=== PATIENT | male | born 1995 | race African-American/Black ===

== ENCOUNTER 2021-06-18 16:23 | Emergency (ER) | payer OTHER ==
[~2021-06-18] VITALS: Ht 170.2 cm; Wt 82.0 kg
[~2021-06-18 16:23] MED LIST: ALBUTEROL
[2021-06-18] MEDS ORDERED: CEFAZOLIN 1000MG PREMIX 50 ML IV ONE (16:45)
[2021-06-18] MEDS ORDERED: TETANUS, DIPHTHERIA, PERTUSSIS VAC/PF 0.5ML (>10YR OLD) IM ONE (16:45)
[2021-06-18] MEDS ORDERED: MORPHINE SULFATE 4 MG/ML CPJ (NOT FOR IM USE) IV ONE (16:45)
[2021-06-18] MEDS ORDERED: ONDANSETRON HCL 4MG/2ML INJ IV ONE (16:45)
[2021-06-18 17:18] LABS: BASOPHILS % 0.7 % (0.0-2.0); EOSINOPHILS % 2.3 % (0.0-5.0); HEMATOCRIT. 41.5 % (42.0-52.0); HEMOGLOBIN. 13.5 g/dL (14.0-18.0); LYMPHOCYTES % 24.5 % (20.0-50.0); MEAN CORPUSCULAR HEMOGLOBIN 26.2 pg (28.0-32.0); MEAN CORPUSCULAR VOLUME 80.6 fL (80.0-94.0); MEAN PLATELET VOLUME 8.2 fl (7.4-10.4); MONOCYTES % 7.7 % (2.0-8.0); NEUTROPHILS % 64.8 % (40.0-76.0); PLATELET 308 x1000/uL (130-400); RED BLOOD CELL COUNT 5.14 mill/uL (4.7-6.1); RED CELL DISTRIBUTION WIDTH 14.5 % (11.6-14.6)
[2021-06-18 17:34] LABS: CHLORIDE 104 mEq/L (98-107)
[2021-06-18] MEDS ORDERED: LIDOCAINE HCL/PF 1% 10 MG/ML 5ML VIAL INFIL ONE (18:30)
[2021-06-18] MEDS ORDERED: BACITRACIN ZINC OINT UDPKT TOP ONE (18:30)
[2021-06-18] MEDS ORDERED: LIDOCAINE HCL 1% 20ML VIAL (Pyxis) INJ INFIL NR (19:28)
[2021-06-18] MEDS ORDERED: IOHEXOL-350 100 ML BOTTLE ONE (20:23)
[2021-06-18] MEDS ORDERED: AMOX-424 MT (20:59)
[2021-06-18] MEDS ORDERED: IBUP-2029 MT (20:59)
[2021-06-18] MEDS ORDERED: OXYC-100 MT (20:59)
[2021-06-18 21:20] VITALS: BP 115/72
== END 2021-06-18 21:27 | disposition home or self-care (01) ==
LOC: ER 16:23
DX: S92.312B Displaced fracture of first metatarsal bone, left foot, initial encounter for open fracture (principal); I10 Essential (primary) hypertension; F12.10 Cannabis abuse, uncomplicated; F17.210 Nicotine dependence, cigarettes, uncomplicated; X93.XXXA Assault by handgun discharge, initial encounter; Y93.89 Activity, other specified; Y92.488 Other paved roadways as the place of occurrence of the external cause
CPT/HCPCS: 12004; 36415; 73630; 73706; 80048; 85025; 90471; 90715; 96365; 96375; 99285; J0690; J2270; J2405; J3490; Q9967; Z7610

== ENCOUNTER 2021-06-22 12:48 | Emergency (ER) | payer MEDICAID ==
[~2021-06-22] VITALS: Ht 170.2 cm; Wt 85.0 kg
[~2021-06-22 12:48] MED LIST changes: +AMOX-424 MT; +IBUP-2029 MT; +OXYC-100 MT
[2021-06-22] MEDS ORDERED: HYDR-4001 MT (13:11)
[2021-06-22 13:25] VITALS: BP 135/75
== END 2021-06-22 13:20 | disposition home or self-care (01) ==
LOC: ER 12:48
DX: Z48.00 Encounter for change or removal of nonsurgical wound dressing (principal); Z87.828 Personal history of other (healed) physical injury and trauma; F12.10 Cannabis abuse, uncomplicated; F17.210 Nicotine dependence, cigarettes, uncomplicated
CPT/HCPCS: 99283

== ENCOUNTER 2021-09-21 01:47 | Inpatient (IN) | payer MEDICAID, OTHER ==
[~2021-09-21] VITALS: Ht 172.7 cm; Wt 84.4 kg
[2021-09-21] VITALS (65 sets, daily range): BP systolic 95–170; BP diastolic 61–115
[~2021-09-21 01:47] MED LIST changes: +HYDR-4001 MT
[2021-09-21] MEDS ORDERED: ONDANSETRON HCL 4MG/2ML INJ IV STA (01:52)
[2021-09-21] MEDS ORDERED: PROPOFOL 10MG/ML 100ML 100 ML IV ONE ×2 (02:00→03:45)
[2021-09-21] MEDS ORDERED: ETOMIDATE 2MG/ML 10ML VIAL IV ONE ×3 (02:00→09:07)
[2021-09-21] MEDS ORDERED: SUCCINYLCHOLINE CHLORIDE 200MG/10ML IV ONE ×3 (02:00→09:07)
[2021-09-21] MEDS ORDERED: MIDAZOLAM HCL 50 MG in DEXTROSE 5% WATER 40 ML IV ONE (02:00)
[2021-09-21] MEDS ORDERED: SODIUM CHLORIDE 0.9% 1,000 ML IV ONE (02:00)
[2021-09-21] MEDS ORDERED: MIDAZOLAM HCL 100 MG in SODIUM CHLORIDE 0.9% 100 ML IV PRN (02:15)
[2021-09-21 05:30] LABS: BG BASE EXCESS -0.2 mmol/L (-2.0-2.0); BG CARBOXYHEMOGLOBIN 0.8 % (0.5-1.5); BG DEOXYHEMOGLOBIN 6.4 % (0.0-5.0); BG FRACTION INSPIRED OXYGEN 50; BG HCO3 ACT 28.4 mmol/L (22.0-26.0); BG METHEMOGLOBIN 0.4 % (0.0-1.5); BG OXYGEN SATURATION 93.5 % (92.0-98.5); BG OXYHEMOGLOBIN 92.4 % (94.0-97.0); BG PCO2 64.7 mmHg (35.0-45.0); BG PH 7.261 (7.350-7.450); BG PO2 74.3 mmHg (75.0-100.0); BG SAMPLE SITE ALINE; BG TOTAL HEMOGLOBIN 14.3 g/dL (12.0-18.0); BG VENT MODE VENT - AC
[2021-09-21] MEDS ORDERED: PROPOFOL 10MG/ML 100ML 100 ML IV PRN (05:45)
[2021-09-21] MEDS ORDERED: FENTANYL 2500MCG/250ML PMX 250 ML IV PRN (05:45)
[2021-09-21] MEDS ORDERED: MIDAZOLAM HCL 100 MG in SODIUM CHLORIDE 0.9% 80 ML IV PRN (05:45)
[2021-09-21 05:57] LABS: CLARITY URINE CLEAR (CLEAR); COLOR URINE YELLOW (YELLOW); KETONES URINE TRACE (NEGATIVE); LEUKOCYTE ESTERASE URINE NEGATIVE (NEGATIVE); NITRITE URINE NEGATIVE (NEGATIVE); OCCULT BLOOD URINE TRACE (NEGATIVE); PH URINE 5.5 (4.5-8.0); PROTEIN URINE 2+ (NEGATIVE); SPECIFIC GRAVITY URINE 1.016 (1.005-1.030); UROBILINOGEN URINE 0.2 E.U./dL (0.2-1.0)
[2021-09-21 06:09] LABS: *AMPHETAMINES SCREEN URINE NEGATIVE (NEGATIVE); *BARBITURATES SCREEN URINE NEGATIVE (NEGATIVE); *BENZODIAZEPINES SCREEN URINE PRESUMTIVE POSITIVE (NEGATIVE); *COCAINE SCREEN URINE NEGATIVE (NEGATIVE); CANNABINOID URINE SCREEN PRESUMTIVE POSITIVE (NEGATIVE); METHADONE URINE SCREEN NEGATIVE (NEGATIVE); OPIATES URINE SCREEN NEGATIVE (NEGATIVE); PHENCYCLIDINE URINE SCREEN NEGATIVE (NEGATIVE)
[2021-09-21] MEDS ORDERED: ONDANSETRON HCL 4MG/2ML INJ IV PRN (06:45)
[2021-09-21 06:58] LABS: BASOPHILS % 0.3 % (0.0-2.0); EOSINOPHILS % 0.2 % (0.0-5.0); HEMATOCRIT. 39.7 % (42.0-52.0); HEMOGLOBIN. 13.1 g/dL (14.0-18.0); LYMPHOCYTES % 12.3 % (20.0-50.0); MEAN CORPUSCULAR HEMOGLOBIN 26.7 pg (28.0-32.0); MEAN CORPUSCULAR VOLUME 80.6 fL (80.0-94.0); MEAN PLATELET VOLUME 7.3 fl (7.4-10.4); MONOCYTES % 3.3 % (2.0-8.0); NEUTROPHILS % 83.9 % (40.0-76.0); PLATELET 233 x1000/uL (130-400); RED BLOOD CELL COUNT 4.92 mill/uL (4.7-6.1); RED CELL DISTRIBUTION WIDTH 13.4 % (11.6-14.6)
[2021-09-21 07:06] LABS: CHLORIDE 114 mEq/L (98-107)
[2021-09-21 07:16] LABS: ETHANOL BLOOD < 10 mg/dL
[2021-09-21] MEDS ORDERED: PIPERACILLIN/TAZOBACTAM 3.375G in DEXT 5% WATER 50ML IV NR (08:00)
[2021-09-21] MEDS ORDERED: SODIUM CHLORIDE 0.9% 10ML VIAL ONE (09:07)
[2021-09-21] MEDS: PANTOPRAZOLE SODIUM 40 MG/VIAL IV SCH (09:18)
[2021-09-21 09:35] LABS: BG BASE EXCESS 1.9 mmol/L (-2.0-2.0); BG CARBOXYHEMOGLOBIN 0.7 % (0.5-1.5); BG DEOXYHEMOGLOBIN 7.7 % (0.0-5.0); BG FRACTION INSPIRED OXYGEN 50; BG HCO3 ACT 29.1 mmol/L (22.0-26.0); BG METHEMOGLOBIN 0.3 % (0.0-1.5); BG OXYGEN SATURATION 92.2 % (92.0-98.5); BG OXYHEMOGLOBIN 91.3 % (94.0-97.0); BG PCO2 57.2 mmHg (35.0-45.0); BG PH 7.325 (7.350-7.450); BG SAMPLE SITE RIGHT RADIAL; BG TOTAL HEMOGLOBIN 13.7 g/dL (12.0-18.0); BG VENT MODE VENT - AC
[2021-09-21] MEDS ORDERED: DEXTROSE 5% WATER 1,000 ML IV SCH (11:00)
[2021-09-21 11:22] LABS: BG BASE EXCESS 2.4 mmol/L (-2.0-2.0); BG CARBOXYHEMOGLOBIN 0.3 % (0.5-1.5); BG DEOXYHEMOGLOBIN 3.1 % (0.0-5.0); BG FRACTION INSPIRED OXYGEN 50; BG HCO3 ACT 29.1 mmol/L (22.0-26.0); BG METHEMOGLOBIN 0.3 % (0.0-1.5); BG OXYGEN SATURATION 96.9 % (92.0-98.5); BG OXYHEMOGLOBIN 96.3 % (94.0-97.0); BG PCO2 54.1 mmHg (35.0-45.0); BG PH 7.349 (7.350-7.450); BG PO2 92.5 mmHg (75.0-100.0); BG SAMPLE SITE RIGHT RADIAL; BG TOTAL HEMOGLOBIN 13.8 g/dL (12.0-18.0); BG VENT MODE VENT - AC
[2021-09-21 12:36] LABS: BG BASE EXCESS 2.9 mmol/L (-2.0-2.0); BG CARBOXYHEMOGLOBIN 0.3 % (0.5-1.5); BG DEOXYHEMOGLOBIN 6.7 % (0.0-5.0); BG FRACTION INSPIRED OXYGEN 40; BG HCO3 ACT 29.8 mmol/L (22.0-26.0); BG METHEMOGLOBIN 0.5 % (0.0-1.5); BG OXYGEN SATURATION 93.2 % (92.0-98.5); BG OXYHEMOGLOBIN 92.5 % (94.0-97.0); BG PCO2 55.4 mmHg (35.0-45.0); BG PH 7.349 (7.350-7.450); BG PO2 67.1 mmHg (75.0-100.0); BG SAMPLE SITE LEFT RADIAL; BG TOTAL HEMOGLOBIN 13.9 g/dL (12.0-18.0); BG VENT MODE VENT - CPAP
[2021-09-21] MEDS: IPRATROPIUM/ALBUTEROL 0.5-3(2.5)MG/3ML NEB HHN SCH ×2 (14:09→20:16)
[2021-09-21] MEDS: PIPERACILLIN/TAZOBACTAM 3.375 G in DEXTROSE 5% WATER 50 ML IV SCH ×2 (14:47→22:34)
[2021-09-22] VITALS (30 sets, daily range): BP systolic 123–162; BP diastolic 71–103
[2021-09-22] MEDS: IPRATROPIUM/ALBUTEROL 0.5-3(2.5)MG/3ML NEB HHN SCH ×4 (01:50→21:52)
[2021-09-22] MEDS: ACETAMINOPHEN 650MG/20.3ML UDC PO PRN ×2 (03:59→13:07)
[2021-09-22 05:23] LABS: BASOPHILS % 0.4 % (0.0-2.0); EOSINOPHILS % 1.4 % (0.0-5.0); HEMATOCRIT. 36.9 % (42.0-52.0); HEMOGLOBIN. 12.4 g/dL (14.0-18.0); LYMPHOCYTES % 12.4 % (20.0-50.0); MEAN CORPUSCULAR VOLUME 80.4 fL (80.0-94.0); MEAN PLATELET VOLUME 7.9 fl (7.4-10.4); MONOCYTES % 3.8 % (2.0-8.0); PLATELET 196 x1000/uL (130-400); RED CELL DISTRIBUTION WIDTH 13.3 % (11.6-14.6)
[2021-09-22 06:09] LABS: CHLORIDE 106 mEq/L (98-107)
[2021-09-22] MEDS: PIPERACILLIN/TAZOBACTAM 3.375 G in DEXTROSE 5% WATER 50 ML IV SCH ×3 (06:51→22:00)
[2021-09-22] MEDS ORDERED: POTASSIUM CHLORIDE INJ 40 MEQ in DEXT 5% WATER 250 ML IV ONE (07:30)
[2021-09-22 07:34] LABS: BG BASE EXCESS 4.2 mmol/L (-2.0-2.0); BG CARBOXYHEMOGLOBIN 0.3 % (0.5-1.5); BG DEOXYHEMOGLOBIN 5.8 % (0.0-5.0); BG HCO3 ACT 29.8 mmol/L (22.0-26.0); BG METHEMOGLOBIN 0.1 % (0.0-1.5); BG OXYGEN SATURATION 94.2 % (92.0-98.5); BG OXYHEMOGLOBIN 93.8 % (94.0-97.0); BG PCO2 48.4 mmHg (35.0-45.0); BG PH 7.407 (7.350-7.450); BG SAMPLE SITE RIGHT RADIAL; BG TOTAL HEMOGLOBIN 13.2 g/dL (12.0-18.0); BG VENT MODE NASAL CANNULA
[2021-09-22] MEDS: BUDESONIDE 0.5MG/2ML NEB HHN SCH ×2 (07:44→21:51)
[2021-09-22] MEDS: PANTOPRAZOLE SODIUM 40 MG/VIAL IV SCH (08:28)
[2021-09-22] MEDS ORDERED: KCL 20MEQ/100ML X 2 FOR TOTAL KCL 40MEQ/200ML IV SCH (10:00)
[2021-09-22] MEDS ORDERED: KCL 20MEQ/100ML PREMIX 100 ML IV NR (17:00)
[2021-09-23] VITALS: BP 145/96
[2021-09-23] MEDS: IPRATROPIUM/ALBUTEROL 0.5-3(2.5)MG/3ML NEB HHN SCH ×4 (00:54→21:07)
[2021-09-23 04:00] VITALS: BP 136/80
[2021-09-23] MEDS: PIPERACILLIN/TAZOBACTAM 3.375 G in DEXTROSE 5% WATER 50 ML IV SCH ×3 (05:42→21:36)
[2021-09-23 08:00] VITALS: BP 135/97
[2021-09-23] MEDS: PANTOPRAZOLE SODIUM 40 MG/VIAL IV SCH (09:03)
[2021-09-23] MEDS: BUDESONIDE 0.5MG/2ML NEB HHN SCH ×2 (09:47→21:07)
[2021-09-23 12:00] VITALS: BP_SYST 152; BP_SYST 89; BP_DIAS 89; BP_DIAS 9
[2021-09-23] MEDS ORDERED: IPRATROPIUM/ALBUTEROL 0.5-3(2.5)MG/3ML NEB HHN SCH (16:00)
[2021-09-23] MEDS: PREDNISONE 20MG TABLET PO SCH (16:19)
[2021-09-23 16:23] VITALS: BP 119/78
[2021-09-23 20:00] VITALS: BP 130/89
[2021-09-23] MEDS: ACETAMINOPHEN 650MG/20.3ML UDC PO PRN (23:27)
[2021-09-24] VITALS: BP 147/75
[2021-09-24] MEDS: IPRATROPIUM/ALBUTEROL 0.5-3(2.5)MG/3ML NEB HHN SCH ×2 (02:33→07:46)
[2021-09-24 04:00] VITALS: BP 123/71
[2021-09-24] MEDS: PIPERACILLIN/TAZOBACTAM 3.375 G in DEXTROSE 5% WATER 50 ML IV SCH (05:15)
[2021-09-24] MEDS: BUDESONIDE 0.5MG/2ML NEB HHN SCH (07:47)
[2021-09-24 08:00] VITALS: BP 141/81
[2021-09-24] MEDS: PANTOPRAZOLE SODIUM 40 MG/VIAL IV SCH (08:02)
[2021-09-24] MEDS: PREDNISONE 20MG TABLET PO SCH (08:02)
[2021-09-24 09:43] LABS: BASOPHILS % 0.1 % (0.0-2.0); EOSINOPHILS % 0.2 % (0.0-5.0); HEMATOCRIT. 39.2 % (42.0-52.0); HEMOGLOBIN. 13.3 g/dL (14.0-18.0); LYMPHOCYTES % 8.1 % (20.0-50.0); MEAN CORPUSCULAR HEMOGLOBIN 26.9 pg (28.0-32.0); MEAN CORPUSCULAR VOLUME 79.1 fL (80.0-94.0); MEAN PLATELET VOLUME 8.2 fl (7.4-10.4); MONOCYTES % 3.1 % (2.0-8.0); NEUTROPHILS % 88.5 % (40.0-76.0); PLATELET 226 x1000/uL (130-400); RED BLOOD CELL COUNT 4.95 mill/uL (4.7-6.1); RED CELL DISTRIBUTION WIDTH 13.3 % (11.6-14.6)
[2021-09-24 10:13] LABS: CHLORIDE 104 mEq/L (98-107)
[2021-09-24 12:00] VITALS: BP 152/84
[2021-09-24] MEDS ORDERED: ALBU6.7H9 INH (13:19)
[2021-09-24 13:28] VITALS: BP 152/84
== END 2021-09-24 14:12 | disposition home or self-care (01) | DRG 720 ==
LOC: ER 01:47 → MICUSO 02:30 → ENRESERV 02:47 → 6WST 09-22 10:36
PROVIDERS: ADMIT Internal Medicine; ATTEND Internal Medicine
PROC: 0BH17EZ Insertion of Endotracheal Airway into Trachea, Via Natural or Artificial Opening (ICD-10-PCS; principal; 2021-09-21)
PROC: 5A1935Z Respiratory Ventilation, Less than 24 Consecutive Hours (ICD-10-PCS; 2021-09-21)
DX: A41.9 Sepsis, unspecified organism (principal); J69.0 Pneumonitis due to inhalation of food and vomit; J96.01 Acute respiratory failure with hypoxia; J96.02 Acute respiratory failure with hypercapnia; G92.9 Unspecified toxic encephalopathy; E87.0 Hyperosmolality and hypernatremia; F12.90 Cannabis use, unspecified, uncomplicated; J45.909 Unspecified asthma, uncomplicated; N28.9 Disorder of kidney and ureter, unspecified; Z71.51 Drug abuse counseling and surveillance of drug abuser; Z78.1 Physical restraint status
CPT/HCPCS: 36415; 36600; 71045; 80048; 80053; 80305; 80320; 81003; 82375; 82805; 83605; 83880; 84478; 84484; 85025; 93005; 94002; 94640; 99291; C9113; J0330; J2250; J2543; J2704; J3480; J3490; J7030; J7060; J7070; J7512; J7626; G0480